=== PATIENT | female | born 1995 | race African-American/Black ===

== ENCOUNTER 2019-09-15 15:09 | Emergency (ER) | payer BC ==
[~2019-09-15] VITALS: Ht 167.6 cm; Wt 90.1 kg
[2019-09-15 15:22] VITALS: BP 153/100
--- NOTE | 2019-09-15 15:35 | PHYS DOC ---
Past Medical History Past Medical History: No Pertinent History Past Surgical History: No Surgical History Alcohol Use: None Drug Use: None Adult General Chief Complaint Chief Complaint: ANKLE PROBLEM HPI HPI Patient is a 24 year old female who presents to the ED today complaining of 6 out of 10 left medial ankle pain that began yesterday after she missed a step and fell down. Patient denies any loss of consciousness, denies hitting her head on the ground. Reports pain is intermittent and sharp worse on weight bearing. Review of Systems Review of Systems Constitutional: Denies fever or chills [] Musculoskeletal: Reports left ankle pain Integument: Denies rash or skin lesions [] Neurologic: Denies headache, focal weakness or sensory changes [] All other systems were reviewed and found to be within normal limits, except as documented in this note. Allergies Allergies Allergies Coded Allergies Type Severity Reaction Last Updated Verified No Known Drug Allergies 09/15/19 No Physical Exam Physical Exam Constitutional: Well developed, well nourished, no acute distress, non-toxic appearance. [] Back: No tenderness, no CVA tenderness. [] Extremities: Left ankle with no obvious deformity. Tenderness on palpation of the medial ankle. Full range of motion to the left ankle and foot. +2 left pedal pulse. Cap refill less than 2 seconds the left toes. Neurologic: Alert and oriented X 3, normal motor function, normal sensory function, no focal deficits noted. [] Psychologic: Affect normal, judgement normal, mood normal. [] Current Patient Data Vital Signs Vital Signs Date Time Temp Pulse Resp B/P (MAP) Pulse Ox O2 Delivery O2 Flow Rate FiO2 09/15/19 15:22 98.6 90 16 153/100 (117) 95 Room Air 98.6 EKG EKG [] Radiology/Procedures Radiology/Procedures []PROCEDURE: ANKLE LEFT 3V Study: ANKLE LEFT 3V Indication: Fall with pain. Comparison: None. Findings: No acute fracture. The ankle mortise is symmetric. The visualized osseous structures of the foot are unremarkable. Impression: No acute osseous abnormality. Electronically signed by: DG ZAPATA MD (09/15/2019 3:43 PM) [id number] DICTATED and SIGNED BY: DG ZAPATA MD DATE: 09/15/19 1543 Course & Med Decision Making Course & Med Decision Making Pertinent Labs and Imaging studies reviewed. (See chart for details) This is a 24-year-old female patient presented to the ED today with left ankle pain that began yesterday after she fell. Left ankle x-rays interpreted by radiologist are negative for any acute findings. Air cast applied to the left ankle by the medical radiation tech, neurovascular exam is intact. Ice elevation encouraged. Follow-up with orthopedic doctor in one. OTC pain relievers. Dragon Disclaimer Dragon Disclaimer This electronic medical record was generated, in whole or in part, using a voice recognition dictation system. Departure Departure Impression: Primary Impression: Left ankle sprain Additional Impression: Fall down steps Disposition: HOME, SELF-CARE Condition: STABLE Referrals: NON,STAFF (PCP) AUDRA SWARTZ MD follow up in 1-2 weeks Patient Instructions: Ankle Sprain, Acute, with Phase I Rehab-SportsMed Additional Instructions: You were seen for left ankle sprain. Wear the air cast provided as tolerated and needed. You can bear weight on the left lower extremity as tolerated. Try to ice and elevate the extremity. You can take Tylenol/Motrin for pain. Follow-up with the provided orthopedic doctor or your own primary care doctor in 1-2 weeks if pain persist Problem Qualifiers Primary Impression: Left ankle sprain Encounter type: initial encounter Involved ligament of ankle: unspecified ligament Qualified Codes: S93.402A - Sprain of unspecified ligament of left ankle, initial encounter Additional Impression: Fall down steps Encounter type: initial encounter Qualified Codes: W10.8XXA - Fall (on) (from) other stairs and steps, initial encounter INDU LUCAS APRN Sep 15, 2019 15:35
--- NOTE | 2019-09-15 15:46 | RAD ---
Study: ANKLE LEFT 3V Indication: Fall with pain. Comparison: None. Findings: No acute fracture. The ankle mortise is symmetric. The visualized osseous structures of the foot are unremarkable. Impression: No acute osseous abnormality. Electronically signed by: DG ZAPATA MD (09/15/2019 3:43 PM) [id number]
== END 2019-09-15 16:03 | disposition home or self-care (01) ==
LOC: ER 15:09
DX: S93.402A Sprain of unspecified ligament of left ankle, initial encounter (principal); W10.8XXA Fall (on) (from) other stairs and steps, initial encounter; Y93.89 Activity, other specified; Y92.89 Other specified places as the place of occurrence of the external cause; Y99.8 Other external cause status
CPT/HCPCS: 73610; 99284; L4350